=== PATIENT | male | born 1950 | race Caucasian/White ===

== ENCOUNTER → 2017-01-19 | Outpatient (CLI) | payer MEDICARE ==
[2017-01-19 10:50] LABS: Basophils # (A) 0.1 k/uL (0-0.2); Basophils % (A) 1 %; CH 33.4; CHCM 33.9; Eosinophils # (A) 0.7 k/uL (0-0.7); Eosinophils % (A) 6 %; HCT 45.9 % (39.0-53.0); HDW 2.84; HGB 15.5 gm/dL (13.0-17.5); Luc # (Auto) 0.43; Luc % (Auto) 3; Lymphocytes # (A) 6.2 k/uL (1.0-4.8); Lymphocytes % (A) 49 %; MCH 33.4 pg (25.0-35.0); MCHC 33.7 g/dL (31.0-37.0); MCV 99.1 fL (80.0-100.0); Mean Platelet Volume 9.1; Monocytes # (A) 0.6 k/uL (0-1.0); Monocytes % (A) 5 %; Neutrophils # (A) 4.7 k/uL (1.3-7.7); Neutrophils % (A) 37 %; RBC 4.63 m/uL (4.30-5.90); RDW 13.3 % (11.5-15.5); WBC 12.8 k/uL (3.8-10.6); WBC (Perox) 13.04
[2017-01-19 11:00] LABS: Bilirubin, Delta 0.3 mg/dL (0.0-0.2); Total Bilirubin 0.7 mg/dL (0.2-1.3); Total Protein 7.7 g/dL (6.3-8.2)
[2017-01-19 11:21] LABS: INR 1.1 (<1.1)
[2017-01-20 16:24] LABS: Hepatits C Virus RNA, Quant <12 IU/mL (<12); LOG HCV IU/mL <1.08 (<1.08)
== END | disposition home or self-care (01) ==
LOC: LABWHC1 10:16
PROVIDERS: ATTEND Physician Assistant
DX: B18.2 Chronic viral hepatitis C (principal)
CPT/HCPCS: 36415; 80076; 82105; 85025; 85610; 87522

== ENCOUNTER → 2017-02-05 | Outpatient (CLI) | payer MEDICARE ==
--- NOTE | 2017-02-05 08:54 | US ---
EXAMINATION TYPE: US liver DATE OF EXAM: 02/05/2017 COMPARISON: Previous study dated 12/07/2015. 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 No pain, GB removed 3/4 years ago EXAM MEASUREMENTS: Liver Length: 14.5 cm CHD: 0.4 cm Right Kidney: 11.1 x 5.5 x 5.8 cm Pancreas: Obscured by bowel gas Liver: wnl Gallbladder: Surgically absent Evidence for sonographic Burrows's sign: neg CHD: wnl Right Kidney: Medial upper pole cystic lesion = 1.7 x 1.5 x 1.9 cm The pancreas is not visualized. The liver is normal in size. There is a coarsened liver echotexture. The gallbladder has been removed. The distal common hepatic duct measures 4 mm. There is an irregular, 1.9 cm hypoechoic lesion arising from the medial aspect of the upper pole of t he right kidney. This was not seen clearly on the previous study. IMPRESSION: 1. COARSENED LIVER TEXTURE. 2. STATUS POST CHOLECYSTECTOMY. 3. INTERVAL DEVELOPMENT OF A COMPLEX HYPOECHOIC EXOPHYTIC LESION ARISING FROM THE UPPER POLE OF THE R IGHT KIDNEY. FURTHER INVESTIGATION WITH CT OR MRI WOULD BE SUGGESTED.
== END | disposition home or self-care (01) ==
LOC: RADUSWWP 08:10
PROVIDERS: ATTEND Internal Medicine Gastroenterology
DX: N28.9 Disorder of kidney and ureter, unspecified (principal); B18.2 Chronic viral hepatitis C; Z90.49 Acquired absence of other specified parts of digestive tract
CPT/HCPCS: 76705

== ENCOUNTER → 2017-03-07 | Outpatient (CLI) | payer MEDICARE ==
[2017-03-07 12:06] LABS: Blood Urea Nitrogen 15 mg/dL (9-20); Non-African American GFR(MDRD) >60 (>60 ml/min/1.73 sqM)
== END | disposition home or self-care (01) ==
LOC: RADMRIMAIN 11:01
PROVIDERS: ATTEND Physician Assistant
DX: Z01.818 Encounter for other preprocedural examination (principal); N08 Glomerular disorders in diseases classified elsewhere
CPT/HCPCS: 82565; 84520

== ENCOUNTER → 2017-06-01 | Outpatient (CLI) | payer MEDICARE ==
[2017-06-01 10:44] LABS: Basophils # (A) 0.2 k/uL (0-0.2); Basophils % (A) 1 %; CH 34.1; Eosinophils % (A) 7 %; HCT 49.9 % (39.0-53.0); HDW 2.72; Luc # (Auto) 0.35; Luc % (Auto) 3; Lymphocytes # (A) 6.3 k/uL (1.0-4.8); Lymphocytes % (A) 47 %; MCH 33.3 pg (25.0-35.0); MCV 103.9 fL (80.0-100.0); Macrocytosis Slight; Monocytes # (A) 0.9 k/uL (0-1.0); Monocytes % (A) 7 %; Neutrophils # (A) 4.8 k/uL (1.3-7.7); Neutrophils % (A) 35 %; RDW 14.4 % (11.5-15.5); WBC 13.5 k/uL (3.8-10.6); WBC (Perox) 13.43
[2017-06-01 10:57] LABS: Bilirubin, Delta 0.2 mg/dL (0.0-0.2); Total Bilirubin 0.7 mg/dL (0.2-1.3); Total Protein 7.4 g/dL (6.3-8.2)
[2017-06-01 12:09] LABS: Manual Review Performed
[2017-06-01 12:12] LABS: Howell-Jolly Bodies Present
[2017-06-01 12:13] LABS: Large Platelets Present
[2017-06-02 14:04] LABS: Hepatits C Virus RNA, Quant <12 IU/mL (<12); LOG HCV IU/mL <1.08 (<1.08)
== END | disposition home or self-care (01) ==
LOC: LABWHC1 09:21
PROVIDERS: ATTEND Physician Assistant
DX: B18.2 Chronic viral hepatitis C (principal)
CPT/HCPCS: 36415; 80076; 82105; 85025; 87522

== ENCOUNTER → 2018-03-16 | Outpatient (CLI) | payer MEDICARE ==
[2018-03-16 13:05] LABS: HCT 52.5 % (39.0-53.0); HGB 17.1 gm/dL (13.0-17.5); MCH 32.1 pg (25.0-35.0); MCHC 32.6 g/dL (31.0-37.0); MCV 98.5 fL (80.0-100.0); Mean Platelet Volume 9.5; Platelet Count 263 k/uL (150-450); RBC 5.33 m/uL (4.30-5.90); RDW 13.1 % (11.5-15.5)
[2018-03-16 13:18] LABS: ALT 33 U/L (21-72); AST 24 U/L (17-59); Albumin 4.3 g/dL (3.5-5.0); Alkaline Phosphatase 74 U/L (38-126); Anion Gap 10 mmol/L; Blood Urea Nitrogen 16 mg/dL (9-20); Calcium 10.1 mg/dL (8.4-10.2); Carbon Dioxide 24 mmol/L (22-30); Chloride 107 mmol/L (98-107); Glucose 198 mg/dL (74-99); Potassium 4.5 mmol/L (3.5-5.1); Sodium 141 mmol/L (137-145); Total Bilirubin 0.4 mg/dL (0.2-1.3); Total Protein 7.8 g/dL (6.3-8.2)
[2018-03-16 13:34] LABS: INR 1.1 (<1.2); Prothrombin Time 10.3 sec (9.0-12.0)
== END | disposition home or self-care (01) ==
LOC: LABWHC1 11:51
PROVIDERS: ATTEND Internal Medicine Gastroenterology
DX: K74.60 Unspecified cirrhosis of liver (principal)
CPT/HCPCS: 36415; 80053; 82105; 85027; 85610

== ENCOUNTER 2018-03-24 06:31 | Day surgery (SDC) | payer MEDICARE ==
[2018-03-19 11:23] VITALS: BMI 38.4
[~2018-03-24 06:31] MED LIST: LACTATED RINGERS 1,000 ML IV SCH; LIDOCAINE 1% 20 ML VIAL (10MG/ML) FOR IV START INTRADERMA PRN; MIDAZOLAM 2 MG/2 ML VIAL IV PRN
[2018-03-24 08:22] VITALS: TEMP 98.1
[2018-03-24 08:23] LABS: Glucose,Whole Blood 113 mg/dL (75-99)
[2018-03-24] MEDS ORDERED: LIDOCAINE 1% INJ 10MG/ML (20 ML MDV) ONE (08:26)
[2018-03-24] MEDS ORDERED: PROPOFOL 10 MG/ML 20 ML VIAL IV ONE (08:26)
--- NOTE | 2018-03-24 08:58 | P.PCN ---
Date of Procedure: 03/24/18 Procedure(s) Performed: Brief history: Patient is a pleasant 67-year-old white male, scheduled for an elective upper endoscopy as well as colonoscopy as a part of evaluation of anemia and Hemoccult -positive stool. Procedure performed: Esophagogastroduodenoscopy with biopsy Colonoscopy Preoperative diagnosis: Anemia and Hemoccult-positive stool Anesthesia: [facility] Procedure: After informed consent was obtained from the patient was brought into the endoscopy unit and IV sedation was administered by anesthesia under continuous monitoring. Initially upper endoscopy was done. The Olympus GF 160 video endoscope was inserted inserted into the mouth and esophagus intubated without any difficulty and was gradually advanced into the stomach and duodenum and carefully examined. The bulb and second part of the duodenum appeared normal. Biopsies were done from the duodenum to rule out celiac disease. The scope was then withdrawn into the stomach adequately insufflated with air and upon careful examination the antrum had scattered erosions and biopsies were done from this area. The body, cardia and fundus appeared normal. The scope was then withdrawn into the esophagus. The GE junction was located at 40 cm to the incisors. It appeared regusuperficial erosions consistent with LA grade B reflux esophagitisest of the esophagus appeared normal. Patient tolerated the procedure well. At this time the patient continued to remain sedation. Initial digital rectal examination was normal. Olympus CF 160 video colonoscope was then inserted into the rectum and gradually advanced to the cecum without any difficulty. Careful examination was performed as the scope was gradually being withdrawn. The prep was excellent. The cecum, ascending colon, transverse colon, descending colon, sigmoid colon and rectum appeared normal. Retroflexion was performed in the rectum and no lesions were noted. Patient tolerated the procedure well. Impression: 1. Upper endoscopy revealed LA grade B reflux esophagitis, small hiatal hernia and antral erosive gastritis 2. Colonoscopy was within normal limits with no evidence of colitis or colorectal neoplasia Recommendations: Findings of this examination were discussed with the patient as well as his family. He was advised to follow with the biopsy results. He will be started on Prilosec 20 mg daily and was briefly treated about antireflux measures. he can have a repeat screening colonoscopy in 10 years
[2018-03-24 09:23] VITALS: BP 145/75; PULSE 91; RESP 16
== END 2018-03-24 09:38 | disposition home or self-care (01) ==
LOC: ORWHC2ENDO 06:31
PROVIDERS: ATTEND Internal Medicine Gastroenterology
DX: K29.50 Unspecified chronic gastritis without bleeding (principal); K21.0 Gastro-esophageal reflux disease with esophagitis; K44.9 Diaphragmatic hernia without obstruction or gangrene; D64.9 Anemia, unspecified; R19.5 Other fecal abnormalities; I10 Essential (primary) hypertension; E11.9 Type 2 diabetes mellitus without complications; Z79.899 Other long term (current) drug therapy; Z79.4 Long term (current) use of insulin
CPT/HCPCS: 88305; 45378; 43239; J2001; J2704; 93976

== ENCOUNTER → 2018-03-24 | Outpatient (CLI) | payer MEDICARE ==
--- NOTE | 2018-03-24 16:48 | US ---
EXAMINATION TYPE: US portal vein DATE OF EXAM: 03/24/2018 COMPARISON: US 02/05/2017 CLINICAL HISTORY: 67-year-old male K74.60 Cirrhosis of Liver. Blood in stool per patient. TECHNIQUE: Multiple sonographic images of the right upper quadrant are obtained. Color Doppler and sp ectral waveform analysis of the hepatic vasculature. 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 Heterogeneous echotexture . Color flow patency within the portal vein: Patent as visualized Portal Vein Flow: Hepatopetal with normal monophasic waveform but with slightly blunted velocity of 1 2 cm/s. Gallbladder: Surgically absent Evidence for sonographic Burrows's sign: No CBD: wnl as visualized Right Kidney: No hydronephrosis. There is a 1.9 cm cyst in the upper pole. Some internal echoes are felt to be artifactual. Ascites noted? No IMPRESSION: 1. Heterogeneous echotexture compatible with underlying cirrhosis. 2. There is a 2.0 cm lesion in the left liver lobe not seen previously. Given patient's risk for deve lopment of HCC, liver MRI recommended. 3. Slightly decreased velocity in the main portal vein. This may indicate underlying portal venous hy pertension. Flow direction remains appropriate.
== END | disposition home or self-care (01) ==
LOC: RADUSWWP 06:49
PROVIDERS: ATTEND Internal Medicine Gastroenterology
DX: K76.89 Other specified diseases of liver (principal)
CPT/HCPCS: 93976

== ENCOUNTER 2018-07-09 16:40 | Emergency (ER) | payer MEDICARE ==
[2018-07-09 16:55] VITALS: TEMP 97.6
[2018-07-09] MEDS ORDERED: DIPH,PERTUS(ACELL)TETVAC-LF 0.5 ML VIAL IM ONE (17:43)
[2018-07-09] MEDS ORDERED: LIDOCAINE 1% INJ 10MG/ML (20 ML MDV) SQ STA (17:43)
--- NOTE | 2018-07-09 18:01 | XR ---
EXAMINATION TYPE: XR hand complete LT DATE OF EXAM: 07/09/2018 CLINICAL HISTORY: Left hand pain TECHNIQUE: Frontal, lateral and oblique images of the left hand are obtained. COMPARISON: None. FINDINGS: There is no acute fracture/dislocation evident in the left hand. Mild to moderate degenera tive changes throughout the phalanges with joint space loss involving PIP and DIP joints is present. The overlying soft tissue appears unremarkable. IMPRESSION: As above.
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
[2018-07-09 19:41] VITALS: BP 146/66; PULSE 58; RESP 16
== END 2018-07-09 19:40 | disposition home or self-care (01) ==
LOC: EC 16:40
DX: S61.213A Laceration without foreign body of left middle finger without damage to nail, initial encounter (principal); E78.5 Hyperlipidemia, unspecified; I10 Essential (primary) hypertension; E11.9 Type 2 diabetes mellitus without complications; Z87.891 Personal history of nicotine dependence; Z88.8 Allergy status to other drugs, medicaments and biological substances; Z79.4 Long term (current) use of insulin; Z79.899 Other long term (current) drug therapy; Z87.19 Personal history of other diseases of the digestive system; Z87.09 Personal history of other diseases of the respiratory system; Z90.81 Acquired absence of spleen; Z23 Encounter for immunization; W29.8XXA Contact with other powered hand tools and household machinery, initial encounter; Y93.89 Activity, other specified; Y92.009 Unspecified place in unspecified non-institutional (private) residence as the place of occurrence of the external cause
CPT/HCPCS: 73130; 90715; 99283; 90471; 12001; J2001

== ENCOUNTER → 2019-06-29 | Outpatient (CLI) | payer MEDICARE ==
[2019-06-29 11:49] LABS: HCT 48.7 % (39.0-53.0); HGB 16.2 gm/dL (13.0-17.5); MCH 33.2 pg (25.0-35.0); MCHC 33.2 g/dL (31.0-37.0); Mean Platelet Volume 9.3; Platelet Count 266 k/uL (150-450); RBC 4.87 m/uL (4.30-5.90); RDW 13.2 % (11.5-15.5)
[2019-06-29 11:53] LABS: INR 0.9 (<1.2); Prothrombin Time 10.2 sec (9.0-12.0)
[2019-06-29 16:10] LABS: African American GFR (CKD) 100.6 (60.0-200.0); Albumin 4.2 g/dL (3.80-4.90); Albumin/Globulin Ratio 1.5 (1.60-3.17); Anion Gap 7.7 mmol/L (4.00-12.00); BUN/Creat Ratio 13.33 Ratio (12.00-20.00); Calcium 9.4 mg/dL (8.7-10.3); Carbon Dioxide 24.3 mmol/L (21.6-31.8); Globulin 2.8 g/dL (1.6-3.3); Potassium 4.7 mmol/L (3.5-5.5); Total Bilirubin 0.5 mg/dL (0.2-1.2)
== END | disposition home or self-care (01) ==
LOC: LABWHC1 10:53
PROVIDERS: ATTEND Internal Medicine Gastroenterology
DX: K74.60 Unspecified cirrhosis of liver (principal)
CPT/HCPCS: 36415; 80053; 82105; 85027; 85610

== ENCOUNTER → 2019-07-25 | Outpatient (CLI) | payer MEDICARE ==
--- NOTE | 2019-07-25 08:29 | US ---
EXAMINATION TYPE: US liver DATE OF EXAM: 07/25/2019 COMPARISON: US 02/05/2017 CLINICAL HISTORY: K74.60 Unspecified cirrhosis of liver. Cirrhosis, GB removed EXAM MEASUREMENTS: Liver Length: 15.2 cm CBD: 0.4 cm Right Kidney: 11.9 x 6.0 x 5.6 cm Large pt body habitus Pancreas: Obscured by bowel gas Liver: Hyperechoic lesion left lobe= 2.3 x 1.7 x 2.3 cm, slightly increased in size when compared to previous, Hepatopedal flow visualized Gallbladder: Surgically absent Evidence for sonographic Burrows's sign: No CBD: wnl Right Kidney: Hypoechoic lesion upper pole as see on previous= 2.3 x 1.8 x 1.8 cm. This appears cyst ic on today's examination. This previously measured 1.9 cm. IMPRESSION: 1. New subcapsular hyperechoic lesion of the left hepatic lobe. This may represent focal fatty infilt ration although evaluation for true liver lesion is recommended with three-phase enhanced CT or MR ab wisdom in this patient with underlying cirrhosis. 2. Slight interval growth of the cystic appearing right renal lesion now measuring 2.3 cm and previou sly measuring 1.9 cm on the exam of 2017.
== END | disposition home or self-care (01) ==
LOC: RADUSWWP 07:29
PROVIDERS: ATTEND Internal Medicine Gastroenterology
DX: K76.9 Liver disease, unspecified (principal); N28.1 Cyst of kidney, acquired; K74.60 Unspecified cirrhosis of liver
CPT/HCPCS: 76705

== ENCOUNTER → 2020-06-27 | Outpatient (CLI) | payer MEDICARE ==
[2020-06-27 10:12] LABS: HCT 49.5 % (39.0-53.0); MCH 32.9 pg (25.0-35.0); MCHC 32.4 g/dL (31.0-37.0); MCV 101.8 fL (80.0-100.0); Macrocytosis Slight; Mean Platelet Volume 10.7; Platelet Count 267 k/uL (150-450); RBC 4.87 m/uL (4.30-5.90); RDW 12.7 % (11.5-15.5); WBC 15.3 k/uL (3.8-10.6)
[2020-06-27 15:13] LABS: Albumin/Globulin Ratio 1.33 (1.60-3.17); Bilirubin, Conjugated 0.2 mg/dL (0.20-0.40); Bilirubin,Unconjugated 0.2 mg/dL; Total Bilirubin 0.4 mg/dL (0.2-1.2)
[2020-06-27 18:33] LABS: INR 1.01 (0.90-1.11); Prothrombin Time 10.9 sec (9.9-11.9)
== END | disposition home or self-care (01) ==
LOC: LABWHC1 08:30
PROVIDERS: ATTEND Physician Assistant
DX: K74.60 Unspecified cirrhosis of liver (principal)
CPT/HCPCS: 36415; 80076; 82105; 85027; 85610

== ENCOUNTER 2021-06-15 11:58 | Emergency (ER) | payer MEDICARE ==
[2021-06-15 12:08] VITALS: BP 162/82; PULSE 66; RESP 18; TEMP 97
[2021-06-15] MEDS ORDERED: KETOROLAC 15 MG/ML 1 ML VIAL IM STA (12:31)
[2021-06-15] MEDS ORDERED: HYDROmorphone 1 MG/ML 1 ML SYRINGE IM STA (12:31)
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
== END 2021-06-15 12:44 | disposition home or self-care (01) ==
LOC: EC 11:58
DX: M54.5 Low back pain (principal); E11.9 Type 2 diabetes mellitus without complications; E78.5 Hyperlipidemia, unspecified; I10 Essential (primary) hypertension; Z79.4 Long term (current) use of insulin; Z90.49 Acquired absence of other specified parts of digestive tract
CPT/HCPCS: 99283; 96372 ×2; J1170; J1885

== ENCOUNTER 2025-02-26 23:41 | Emergency (ER) | payer MEDICARE ==
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
[2025-02-27] MEDS: IBUPROFEN 600 MG TAB PO STA (00:25)
[2025-02-27] MEDS: ACETAMINOPHEN TAB 500 MG TAB PO STA (00:25)
[2025-02-27] MEDS: ONDANSETRON 4 MG/2 ML VIAL IVP STA (00:56)
[2025-02-27] MEDS: SODIUM CHLORIDE 0.9% 1,000 ML IV SCH (00:56)
[2025-02-27 01:00] LABS: RSV Not Detected (Not Detectd)
[2025-02-27 01:26] LABS: Basophils # (A) 0.07 10*3/uL (0.00-0.10); Basophils % (A) 0.3 %; Eosinophils # (A) 0.13 10*3/uL (0.04-0.35); Eosinophils % (A) 0.6 %; HCT 44.7 % (39.6-50.0); HGB 15.4 g/dL (13.0-17.0); Lymphocytes # (A) 3.14 10*3/uL (0.90-5.00); Lymphocytes % (A) 14.7 %; MCH 33.5 pg (27.0-32.0); MCHC 34.5 g/dL (32.0-37.0); MCV 97.2 fL (80.0-97.0); Monocytes # (A) 1.32 10*3/uL (0.20-1.00); Monocytes % (A) 6.2 %; Neutrophils # (A) 16.55 10*3/uL (1.80-7.70); Neutrophils % (A) 77.6 %; Platelet Count 205 10*3/uL (140-440); RBC 4.60 10*6/uL (4.40-5.60); RDW 13.3 % (11.5-14.5); WBC 21.33 10*3/uL (4.50-10.00)
--- NOTE | 2025-02-27 01:27 | XR ---
EXAM: XR Chest, 2 Views CLINICAL HISTORY: ITS.REASON XR Reason: Weakness TECHNIQUE: Frontal and lateral views of the chest. COMPARISON: No previous studies. FINDINGS: Lungs: There is prominence of central pulmonary vasculature. No consolidation. Pleural space: Unremarkable. No pneumothorax. Heart: There is cardiomegaly. Mediastinum: Unremarkable. Normal mediastinal contour. Bones/joints: Osteopenia. No acute fracture. Soft tissues: Soft tissues are unremarkable. Vasculature: Atherosclerotic disease. IMPRESSION: 1. Hypoaeration. 2. Cardiomegaly. 3. Consider incipient congestive heart failure.
[2025-02-27 02:01] LABS: INR 1.1 (<1.2); Partial Thromboplastin Time 25.3 sec (22.0-30.0); Prothrombin Time 11.7 sec (10.0-12.5)
[2025-02-27 02:24] LABS: ALT 20 U/L (4-49); AST 27 U/L (17-59); African American GFR (CKD) >90 (>60 ml/min/1.73 sqM); Albumin 3.9 g/dL (3.5-5.0); Alkaline Phosphatase 73 U/L (38-126); Anion Gap 12 mmol/L; Blood Urea Nitrogen 21 mg/dL (9-20); Calcium 10.1 mg/dL (8.4-10.2); Carbon Dioxide 21 mmol/L (22-30); Chloride 102 mmol/L (98-107); Glucose 148 mg/dL (74-99); Magnesium 1.6 mg/dL (1.6-2.3); Non-African American GFR(CKD) 85 (>60 ml/min/1.73 sqM); Potassium 4.5 mmol/L (3.5-5.1); Sodium 135 mmol/L (137-145); Total Protein 7.5 g/dL (6.3-8.2)
[2025-02-27 02:32] LABS: NT-Pro-B-Type Natriuretic Pept 790 pg/mL
[2025-02-27] MEDS ORDERED: ONDANSETRON 4 MG/2 ML VIAL IVP PRN (02:45)
[2025-02-27] MEDS ORDERED: MORPHINE SULFATE 4 MG/ML SYRINGE IV PRN (02:45)
[2025-02-27] MEDS ORDERED: NALOXONE 0.4 MG/ML 1 ML VIAL IV PRN (02:45)
[2025-02-27] MEDS ORDERED: ACETAMINOPHEN TAB 325 MG TAB PO PRN (02:45)
[2025-02-27 02:47] LABS: Bilirubin,Urine Negative (Negative); Blood,Urine Negative (Negative); Color,Urine Yellow; Glucose,Urine (UA) Negative (Negative); Ketones,Urine Negative (Negative); Leukocyte Esterase,Urine Negative (Negative); Nitrite,Urine Negative (Negative); PH, Urine 5.5 (5.0-8.0); Protein,Urine Trace (Negative); Specific Gravity,Urine 1.021 (1.001-1.035); Urobilinogen,Urine 3.0 mg/dL (<2.0)
[2025-02-27 03:15] VITALS: RESP 16
[2025-02-27] MEDS: AZITHROMYCIN 500 MG in SODIUM CHLORIDE 0.9% 250 ML IVPB STA (04:01)
[2025-02-27 05:30] VITALS: BP 127/61; PULSE 62; TEMP 97.9
== END 2025-02-27 06:35 | disposition home or self-care (01) ==
LOC: EC 23:41 → UNDOADMIN 02-27 02:46 → 4SSUR 02-27 02:46 → 1SOBS 02-27 05:12 → EC 02-27 06:35
DX: R50.9 Fever, unspecified (principal); J18.9 Pneumonia, unspecified organism; Z88.8 Allergy status to other drugs, medicaments and biological substances
CPT/HCPCS: 36415; 93005; 87651; 83880; 80053; 83605; 83735; 84100; 84484; 85025; 85610; 85730; 81003; 87040; 87636; 71046; 99284; 96365; 96367; 96375; 96361; J2405; J0456; J0696